=== PATIENT | male | born 1955 | race Two or more races ===

== ENCOUNTER 2024-09-26 09:50 | Day surgery (SDC) | payer MEDICARE, BC, SELFPAY ==
[2024-09-26 11:14] VITALS: BMI 28.0
[2024-09-26 11:16] VITALS: BP 128/85; PULSE 80; RESP 18; TEMP 36.2; O2SAT 99
[2024-09-26] MEDS: LACTATED RINGERS 1000ML 1,000 ML 50 ML IV (11:16)
--- NOTE | 2024-09-26 11:26 | EXP.ANES.CKL ---
[facility] Disclaimer: The information contained in this section may have been updated after the patient was seen, as this information can be updated by other users. Medical History (Updated 09/26/24 @ 11:11 by Ren Diaz RN) Hypothyroid HLD (hyperlipidemia) HTN (hypertension) Surgical History (Updated 09/26/24 @ 11:12 by Ren Diaz RN) History of foot surgery History of oral surgery History of cholecystectomy History of shoulder surgery History of knee surgery Family History (Updated 09/26/24 @ 11:12 by Ren Diaz RN) Other No significant family history Social History (Updated 09/26/24 @ 11:13 by Ren Diaz RN) Smoking Status: Former smoker alcohol intake: never substance use type: unknown current occupational status: retired Travel in the last 8 weeks: None [facility] Anesthesia Checklist Patient Identification Patient Identification: Arm Band and Verbal (Name & ) Structural Data Admitted From: Home Planned Operative Procedure/s: Colonscopy Verified Documents: Surgical Consent and History and Physical NPO Status Verified Time NPO: 00:00 Additional verifications Anesthesia Reactions: No Airway Assessment Mallampati Score:: Class I Dentition: Good Dentition Neurological Assessment Level of Consciousness: Awake, Alert and Appropriate Hx Seizures: No Anesthesia Plan Anesthesia Risk discussed: Yes Anesthesia Plan: Verified ASA Class: II Anesthesia Type: MAC
--- NOTE | 2024-09-26 12:00 | P.HP_ITS ---
History of Present Illness *Admission Date: 09/26/24 *Reason for visit:: Personal history of adenomatous colon polyps *History of present illness: Mr. Beltran is a 69-year-old gentleman who is here for surveillance colonoscopy secondary to a personal history of adenomatous colon polyps. The examination is deemed medically necessary for surveillance colonoscopy. The patient has been seen, interviewed and examined prior to the procedure by both myself and the anesthesia provider. [facility] Disclaimer: The information contained in this section may have been updated after the patient was seen, as this information can be updated by other users. Medical History (Updated 09/26/24 @ 12:09 by Raman Estrella II, MD) Hypothyroid HLD (hyperlipidemia) HTN (hypertension) Surgical History (Updated 09/26/24 @ 11:12 by Ren Diaz RN) History of foot surgery History of oral surgery History of cholecystectomy History of shoulder surgery History of knee surgery Family History (Updated 09/26/24 @ 11:12 by Ren Diaz RN) Other No significant family history Social History (Updated 09/26/24 @ 11:27 by Thu Maloney CRNA) Smoking Status: Former smoker alcohol intake: never substance use type: unknown current occupational status: retired Travel in the last 8 weeks: None Have you lived/traveled outside [place] in past 30 days?: No Contact w/someone who lives/traveled outside [place] past 30 days?: No Exposure to someone with infectious disease in past 14 days?: No Do you have a fever (greater than 100.4 F or 38 C)?: No Have you tested positive for COVID-19: Yes Exposed to someone with COVID-19 in past 14 days?: No Do you have a sore throat?: No Do you have a cough?: No Do you have any weakness?: No Are you experiencing any nausea/vomitting?: No Do you have any diarrhea?: No Are you experiencing any unusual bleeding?: No Do you have any muscle aches/pain?: No Do you have any abdominal pain?: No Are you experiencing loss of taste or smell?: No Review of Systems Review of Systems Review of systems (narrative): Negative *Cardiovascular Comments: Negative *Gastrointestinal Comments: Negative *Genitourinary Comments: Negative *Musculoskeletal Comments: Negative *Neurologic Comments: Negative Meds Home Medications and Allergies Home Medications ?Medication ?Instructions ?Recorded ?Confirmed ?Type ergocalciferol (vitamin D2) 1,250 1,250 mcg PO WEEKLY 09/26/24 09/26/24 History mcg (50,000 unit) capsule (Vitamin D2) esomeprazole magnesium 20 mg 20 mg PO DAILY 09/26/24 09/26/24 History capsule,delayed release (Nexium) fenofibrate 150 mg capsule 150 mg PO DAILY 09/26/24 09/26/24 History hydrochlorothiazide 12.5 mg capsule 12.5 mg PO BID 09/26/24 09/26/24 History irbesartan 150 mg tablet 150 mg PO DAILY 09/26/24 09/26/24 History levothyroxine 50 mcg tablet 50 mcg PO DAILY 09/26/24 09/26/24 History (Synthroid) tadalafil 5 mg tablet (Cialis) 5 mg PO DAILY 09/26/24 09/26/24 History testosterone 50 mg/5 gram (1 %) 50 mg transdermal DAILY 09/26/24 09/26/24 History transdermal gel vitamin D11-bsohvdd B1 100 mg-1 1 ml IM WEEKLY 09/26/24 09/26/24 History mg/mL intramuscular solution New Prescriptions to Start Prescriptions: Allergies Allergy/AdvReac Type Severity Reaction Status Date / Time No Known Allergies Allergy Verified 09/26/24 11:03 Exam Data for Last 24 hours Vital signs and Labs for Last 24 Hours: Temp Pulse Resp BP Pulse Ox O2 Del Method 97.1 F L 80 18 128/85 99 Room Air 09/26/24 11:16 09/26/24 11:16 09/26/24 11:16 09/26/24 11:16 09/26/24 11:16 09/26/24 11:16 I & O for Last 24 hours: Intake & Output 09/23/24 09/24/24 09/25/24 09/26/24 23:59 23:59 23:59 23:59 Weight 179 lb *Routine HEENT Exam Head: Present normocephalic Eye: Present EOMI and PERRL ENT: Present mucous membranes moist *Routine Neck Exam Neck: Present supple *Routine Respiratory Exam Respiratory: Present CTA bilaterally *Routine Cardiovascular Exam Cardiovascular: Present RRR *Routine Abdominal Exam Abdominal: Present soft and normoactive bowel sounds; Absent tenderness *Routine Rectal Exam Rectal:: deferred *Routine Genitalia Exam Genitalia:: deferred *Routine Extremities Exam Extremities: Absent cyanosis, clubbing or edema *Routine Skin Exam Skin: Present warm; Absent rash *Routine Neurological Exam Neurological: Present alert and oriented X3 Assessment and Plan *Assessment and plan (1) Personal history of adenomatous and serrated colon polyps: Status: Acute Category: Medical Code(s): Z86.0101 - Personal history of adenomatous and serrated colon polyps Plan A/P: 1. Personal history of adenomatous colon polyps is the preprocedural diagnosis. The patient will be anesthetized/sedated using MAC sedation. The patient has been seen and examined. Cardiac and lung assessment prior to the examination is stable. Proceed with planned surveillance colonoscopy.
[2024-09-26 12:09] VITALS: O2SAT 98
--- NOTE | 2024-09-26 12:09 | HMH.PROCNOTE ---
[facility] Procedure Note Date: 09/26/24 Time: 12:25 Procedure Note:: Colonoscopy Procedure Report: Colonoscopy with cold snare polypectomy Endoscopist: Raman Estrella II, MD Referring physician: Vicente Singh MD Date of Procedure: September 26, 2024 Equipment: Olympus 190 variable stiffness pediatric colonoscope Sedation: MAC sedation Indication: Mr. Beltran is a 69-year-old gentleman who is here for follow-up surveillance colonoscopy. The patient does have a personal history of adenomatous colon polyps. His last colonoscopy was 5 years ago and he had 3 small benign polyps (adenomas). This is his 4th or 5th colonoscopy and he has had adenomatous polyps on most prior examinations. He reports no abdominal pain, weight loss, change in his bowel habits or rectal bleeding. He reports no family history of colon cancer. 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 Procedure: Prior to the procedure, a history and physical exam was performed, and patient's medications and allergies were reviewed. The risks, benefits and alternatives of the sedation and procedure were discussed with the patient. All questions were answered and informed consent was obtained. The patient was brought to the procedure room. Patient identification and proposed procedure were verified by the physician and the nurse. The patient was placed in a left lateral decubitus position and the scope was passed under direct vision. Throughout the procedure, the patient's blood pressure, pulse, and oxygen saturations were monitored continuously. The colonoscopy was accomplished without difficulty. The patient tolerated the procedure well. Findings: On digital rectal examination there was normal rectal tone. There were no external hemorrhoids. The prostate was 2+, smooth, soft, symmetric without nodules. The colonoscope was introduced through the anal canal to the rectum and advanced to the cecum. The ileocecal valve and appendiceal orifice were identified. The scope was advanced a short distance into the ileum which appeared grossly normal. The scope was then withdrawn into the colon. There were 2 diminutive polyps (transverse x 2 (2 mm and 5 mm)). These were both removed via cold snare polypectomy. The remaining cecum, ascending, transverse, descending, sigmoid and rectum were grossly normal. There were no mucosal abnormalities identified. Upon retroflexion within the rectum there were grade 1-2 internal hemorrhoids. The preparation was excellent throughout with [place] Preparation Score of 9. The cecal time was 12 minutes. Impression: 1. Diminutive colonic polyps x 2 2. Grade 1-2 internal hemorrhoids Plan: I will follow-up the polyp histology and recommend repeat surveillance colonoscopy again in 5 to 7 years based upon the pathology. I would recommend continuing the psyllium Konsyl and Iberogast daily.
[2024-09-26 12:27] VITALS: BP 108/63; PULSE 79; RESP 18; TEMP 36.4; O2SAT 93
[2024-09-26 12:37] VITALS: BP 96/59; PULSE 77; RESP 18; O2SAT 95
[2024-09-26 12:47] VITALS: BP 122/75; PULSE 67; RESP 18; O2SAT 93
[2024-09-26 12:57] VITALS: BP 115/87; PULSE 63; RESP 18; O2SAT 97
== END 2024-09-26 13:13 | disposition home or self-care (01) ==
PROVIDERS: PCP Internal Medicine; Visit Provider Internal Medicine Gastroenterology
PROC: 0DJD8ZZ Inspection of Lower Intestinal Tract, Via Natural or Artificial Opening Endoscopic (ICD-10-PCS; CPT 45378; principal; 2024-09-26 12:00)
DX: K63.5 Polyp of colon (principal); K64.8 Other hemorrhoids; Z86.0101 Personal history of adenomatous and serrated colon polyps
CPT/HCPCS: 45385; J7120